=== PATIENT | male | born 1940 | race Caucasian/White ===

== ENCOUNTER 2017-06-21 11:54 | Outpatient (CLI) | payer OTHER ==
[~2017-06-21 11:54] MED LIST: ALTACE10 MG; ASA-EC81 MG; CARDURA1 MG; DIOVAN320 MG; FEOSOL1 TAB; FOLIC ACID1 MG; GLYCOTROL CAPS1 EACH; HYDROCHLOROTH12.5 MG; LABETALOL HCL200 MG; LIPITOR20 MG; METFORMIN HCL500 MG; NABUMETONE500 MG PO; PEPCID20 MG; PERCOCET 5/3251 TAB PO; PLAVIX75 MG; PROSCAR5 MG; PROTONIX40 MG
== END 2017-06-21 12:42 | disposition home or self-care (01) ==
LOC: LAB 11:54
DX: C61 Malignant neoplasm of prostate (principal)

== ENCOUNTER → 2017-06-24 06:45 | Outpatient (CLI) | payer OTHER | END | disposition home or self-care (01) | LOC: LAB 06:45 | DX: R31.9 Hematuria, unspecified (principal) ==

== ENCOUNTER 2017-08-27 09:07 | Emergency (ER) | payer OTHER ==
[~2017-08-27] VITALS: Ht 170.2 cm; Wt 80.3 kg
== END 2017-08-27 14:39 | disposition home or self-care (01) ==
LOC: ER 09:07
DX: R42 Dizziness and giddiness (principal)

== ENCOUNTER 2017-10-28 09:14 | Outpatient (CLI) | payer OTHER | END 2017-10-28 09:16 | disposition home or self-care (01) | LOC: LAB 09:14 | DX: I25.10 Atherosclerotic heart disease of native coronary artery without angina pectoris (principal); I71.4 Abdominal aortic aneurysm, without rupture; M10.9 Gout, unspecified; M10.072 Idiopathic gout, left ankle and foot; K76.0 Fatty (change of) liver, not elsewhere classified; N20.0 Calculus of kidney ==

== ENCOUNTER 2018-02-03 14:58 | Outpatient (CLI) | payer OTHER | END 2018-02-03 15:08 | disposition home or self-care (01) | LOC: LAB 14:58 | DX: C61 Malignant neoplasm of prostate (principal); R97.20 Elevated prostate specific antigen [PSA] ==

== ENCOUNTER → 2019-02-06 18:02 | Outpatient (CLI) | payer OTHER | END | disposition home or self-care (01) | LOC: LAB 18:02 | DX: N40.1 Benign prostatic hyperplasia with lower urinary tract symptoms (principal) ==

== ENCOUNTER 2019-07-11 11:31 | Outpatient (CLI) | payer OTHER | END 2019-07-11 12:45 | disposition home or self-care (01) | LOC: LAB 11:31 | DX: N40.1 Benign prostatic hyperplasia with lower urinary tract symptoms (principal); C67.8 Malignant neoplasm of overlapping sites of bladder ==

== ENCOUNTER 2019-11-07 11:15 | Outpatient (CLI) | payer OTHER ==
[2019-11-26] MEDS ORDERED: CIPRODEX OTIC7.5 ML OT (11:45)
== END 2019-11-07 15:00 | disposition home or self-care (01) ==
LOC: LAB 11:15
PROVIDERS: ATTEND Internal Medicine Geriatric Medicine
DX: E61.1 Iron deficiency (principal); R73.03 Prediabetes; I25.10 Atherosclerotic heart disease of native coronary artery without angina pectoris; E78.00 Pure hypercholesterolemia, unspecified; I10 Essential (primary) hypertension

== ENCOUNTER → 2019-11-26 | Outpatient (CLI) | payer OTHER ==
[~2019-11-26] MED LIST changes: +CIPRODEX OTIC7.5 ML OT
== END | disposition home or self-care (01) ==
LOC: OFIC 805 08:54
PROVIDERS: ATTEND Otolaryngology
DX: H60.8X1 Other otitis externa, right ear (principal); H61.21 Impacted cerumen, right ear; H90.41 Sensorineural hearing loss, unilateral, right ear, with unrestricted hearing on the contralateral side

== ENCOUNTER 2019-12-21 13:24 | Outpatient (CLI) | payer OTHER | END 2019-12-21 16:34 | disposition home or self-care (01) | LOC: OFIC 805 13:24 | PROVIDERS: ATTEND Otolaryngology | DX: H91.8X1 Other specified hearing loss, right ear (principal); H60.8X1 Other otitis externa, right ear ==

== ENCOUNTER 2020-02-19 10:55 | Outpatient (CLI) | payer OTHER | END 2020-02-19 11:01 | disposition home or self-care (01) | LOC: LAB 10:55 | PROVIDERS: ATTEND Urology | DX: R97.20 Elevated prostate specific antigen [PSA] (principal); C61 Malignant neoplasm of prostate; N30.00 Acute cystitis without hematuria ==

== ENCOUNTER → 2020-02-23 11:01 | Outpatient (CLI) | payer OTHER | END | disposition home or self-care (01) | LOC: LAB 11:01 | PROVIDERS: ATTEND Internal Medicine Geriatric Medicine | DX: R73.03 Prediabetes (principal); I25.10 Atherosclerotic heart disease of native coronary artery without angina pectoris; I10 Essential (primary) hypertension; E78.00 Pure hypercholesterolemia, unspecified ==

== ENCOUNTER 2020-03-11 09:37 | Outpatient (CLI) | payer OTHER | END 2020-03-11 09:48 | disposition home or self-care (01) | LOC: LAB 09:37 | PROVIDERS: ATTEND Urology | DX: R31.0 Gross hematuria (principal); D62 Acute posthemorrhagic anemia ==

== ENCOUNTER → 2020-05-10 | Outpatient (CLI) | payer OTHER | END | disposition home or self-care (01) | LOC: SONOGRAMA 09:09 → MAMO-SONO 09:15 | PROVIDERS: ATTEND Orthopaedic Surgery | DX: M25.512 Pain in left shoulder (principal) ==

== ENCOUNTER 2020-06-20 12:56 | Outpatient (CLI) | payer OTHER | END 2020-06-20 13:06 | disposition home or self-care (01) | LOC: LAB 12:56 | PROVIDERS: ATTEND Internal Medicine Geriatric Medicine | DX: R73.03 Prediabetes (principal); I10 Essential (primary) hypertension; D50.0 Iron deficiency anemia secondary to blood loss (chronic); I25.10 Atherosclerotic heart disease of native coronary artery without angina pectoris; E78.00 Pure hypercholesterolemia, unspecified; C61 Malignant neoplasm of prostate; R31.1 Benign essential microscopic hematuria; M10.9 Gout, unspecified ==

== ENCOUNTER 2020-08-12 08:08 | Outpatient (CLI) | payer OTHER | END 2020-08-12 08:55 | disposition home or self-care (01) | LOC: OFIC 805 08:08 | PROVIDERS: ATTEND Otolaryngology Otology & Neurotology | DX: H90.41 Sensorineural hearing loss, unilateral, right ear, with unrestricted hearing on the contralateral side (principal); R42 Dizziness and giddiness; H61.21 Impacted cerumen, right ear ==

== ENCOUNTER 2021-03-11 09:03 | Outpatient (CLI) | payer OTHER | END 2021-03-11 09:17 | disposition home or self-care (01) | LOC: LAB 09:03 | PROVIDERS: ATTEND Internal Medicine Geriatric Medicine | DX: R97.20 Elevated prostate specific antigen [PSA] (principal); I25.10 Atherosclerotic heart disease of native coronary artery without angina pectoris; E78.00 Pure hypercholesterolemia, unspecified; I10 Essential (primary) hypertension; R73.03 Prediabetes; N40.1 Benign prostatic hyperplasia with lower urinary tract symptoms; C61 Malignant neoplasm of prostate; C67.8 Malignant neoplasm of overlapping sites of bladder; L30.0 Nummular dermatitis ==

== ENCOUNTER 2021-05-18 11:00 | Outpatient (CLI) | payer OTHER | END 2021-05-18 11:01 | disposition home or self-care (01) | LOC: LAB 11:00 | DX: R93.2 Abnormal findings on diagnostic imaging of liver and biliary tract (principal) ==

== ENCOUNTER 2021-08-25 12:30 | Outpatient (CLI) | payer OTHER | END 2021-08-25 13:00 | disposition home or self-care (01) | LOC: PPH VACUNA 12:30 | PROVIDERS: ATTEND Emergency Medicine Pediatric Emergency Medicine | DX: Z23 Encounter for immunization (principal) ==

== ENCOUNTER → 2021-09-26 11:47 | Outpatient (CLI) | payer OTHER | END | disposition home or self-care (01) | LOC: LAB 11:47 | PROVIDERS: ATTEND Urology | DX: N40.1 Benign prostatic hyperplasia with lower urinary tract symptoms (principal); C61 Malignant neoplasm of prostate; C67.9 Malignant neoplasm of bladder, unspecified ==

== ENCOUNTER 2021-12-13 10:43 | Outpatient (CLI) | payer OTHER | END 2021-12-13 10:44 | disposition home or self-care (01) | LOC: LAB 10:43 | PROVIDERS: ATTEND Internal Medicine Geriatric Medicine | DX: I25.10 Atherosclerotic heart disease of native coronary artery without angina pectoris (principal); I10 Essential (primary) hypertension; E78.00 Pure hypercholesterolemia, unspecified; R73.03 Prediabetes ==

== ENCOUNTER 2022-04-23 11:51 | Outpatient (CLI) | payer OTHER | END 2022-04-23 11:52 | disposition home or self-care (01) | LOC: LAB 11:51 | PROVIDERS: ATTEND Internal Medicine Cardiovascular Disease | DX: I34.0 Nonrheumatic mitral (valve) insufficiency (principal); I50.32 Chronic diastolic (congestive) heart failure; E78.5 Hyperlipidemia, unspecified; I25.9 Chronic ischemic heart disease, unspecified ==

== ENCOUNTER 2022-04-25 11:58 | Outpatient (CLI) | payer OTHER | END 2022-04-25 12:00 | disposition home or self-care (01) | LOC: LAB 11:58 | PROVIDERS: ATTEND Urology | DX: I25.10 Atherosclerotic heart disease of native coronary artery without angina pectoris (principal); E78.00 Pure hypercholesterolemia, unspecified; I10 Essential (primary) hypertension; R73.03 Prediabetes; R97.20 Elevated prostate specific antigen [PSA]; R31.1 Benign essential microscopic hematuria ==

== ENCOUNTER 2022-06-16 10:47 | Outpatient (CLI) | payer OTHER | END 2022-06-16 10:58 | disposition home or self-care (01) | LOC: LAB 10:47 | DX: R93.2 Abnormal findings on diagnostic imaging of liver and biliary tract (principal); K86.2 Cyst of pancreas ==

== ENCOUNTER → 2022-06-16 | Emergency (ER) | payer OTHER ==
[~2022-06-16] VITALS: Ht 170.2 cm; Wt 81.6 kg
== END | disposition home or self-care (01) ==
LOC: ER 07:23
DX: S33.9XXA Sprain of unspecified parts of lumbar spine and pelvis, initial encounter (principal); W19.XXXA Unspecified fall, initial encounter; Y93.9 Activity, unspecified; Y92.9 Unspecified place or not applicable; Y99.9 Unspecified external cause status; S20.229A Contusion of unspecified back wall of thorax, initial encounter; Z91.013 Allergy to seafood

== ENCOUNTER → 2022-07-03 | Outpatient (CLI) | payer OTHER | END | disposition home or self-care (01) | LOC: RAD 15:28 | PROVIDERS: ATTEND Orthopaedic Surgery | DX: M54.2 Cervicalgia (principal) ==

== ENCOUNTER 2022-07-13 12:51 | Outpatient (CLI) | payer OTHER | END 2022-07-13 12:52 | disposition home or self-care (01) | LOC: NUCLEAR 12:51 | PROVIDERS: ATTEND Orthopaedic Surgery | DX: M81.0 Age-related osteoporosis without current pathological fracture (principal) ==

== ENCOUNTER 2022-08-17 09:37 | Outpatient (CLI) | payer OTHER | END 2022-08-17 09:43 | disposition home or self-care (01) | LOC: SONOGRAMA 09:37 | PROVIDERS: ATTEND Internal Medicine Cardiovascular Disease | DX: I71.40 Abdominal aortic aneurysm, without rupture, unspecified (principal) ==

== ENCOUNTER 2022-08-31 09:31 | Outpatient (CLI) | payer OTHER | END 2022-08-31 09:32 | disposition home or self-care (01) | LOC: LAB 09:31 | PROVIDERS: ATTEND Internal Medicine Geriatric Medicine | DX: M10.9 Gout, unspecified (principal); E78.00 Pure hypercholesterolemia, unspecified; I10 Essential (primary) hypertension; I25.10 Atherosclerotic heart disease of native coronary artery without angina pectoris ==

== ENCOUNTER 2022-09-21 09:19 | Outpatient (CLI) | payer OTHER | END 2022-09-21 09:28 | disposition home or self-care (01) | LOC: LAB 09:19 | PROVIDERS: ATTEND Internal Medicine Cardiovascular Disease | DX: I20.1 Angina pectoris with documented spasm (principal) ==

== ENCOUNTER 2022-12-06 10:24 | Outpatient (CLI) | payer OTHER | END 2022-12-06 10:40 | disposition home or self-care (01) | LOC: RAD 10:24 | PROVIDERS: ATTEND Ophthalmology | DX: Z01.818 Encounter for other preprocedural examination (principal) ==

== ENCOUNTER 2022-12-21 10:05 | Outpatient (CLI) | payer OTHER | END 2022-12-21 10:13 | disposition home or self-care (01) | LOC: LAB 10:05 | PROVIDERS: ATTEND Internal Medicine Geriatric Medicine | DX: E78.00 Pure hypercholesterolemia, unspecified (principal); I11.9 Hypertensive heart disease without heart failure; R73.03 Prediabetes; I25.10 Atherosclerotic heart disease of native coronary artery without angina pectoris ==

== ENCOUNTER 2023-01-09 03:01 | Emergency (ER) | payer OTHER ==
[~2023-01-09] VITALS: Ht 165.1 cm; Wt 79.8 kg
== END 2023-01-09 13:26 | disposition home or self-care (01) ==
LOC: ER 03:01
PROVIDERS: General Practice
DX: K62.5 Hemorrhage of anus and rectum (principal); K57.91 Diverticulosis of intestine, part unspecified, without perforation or abscess with bleeding

== ENCOUNTER → 2023-01-19 10:32 | Outpatient (CLI) | payer OTHER | END | disposition home or self-care (01) | LOC: LAB 10:32 | DX: D50.0 Iron deficiency anemia secondary to blood loss (chronic) (principal); K62.5 Hemorrhage of anus and rectum; D62 Acute posthemorrhagic anemia ==

== ENCOUNTER → 2023-02-23 | Outpatient (CLI) | payer OTHER | END | disposition home or self-care (01) | LOC: RAD 10:42 | DX: R05.8 Other specified cough (principal) ==

== ENCOUNTER 2023-04-29 08:46 | Outpatient (CLI) | payer OTHER | END 2023-04-29 08:59 | disposition home or self-care (01) | LOC: SONOGRAMA 08:46 | PROVIDERS: ATTEND Urology | DX: N40.1 Benign prostatic hyperplasia with lower urinary tract symptoms (principal); C61 Malignant neoplasm of prostate; C67.9 Malignant neoplasm of bladder, unspecified; G56.03 Carpal tunnel syndrome, bilateral upper limbs ==

== ENCOUNTER 2023-06-21 14:52 | Outpatient (CLI) | payer OTHER | END 2023-06-21 14:56 | disposition home or self-care (01) | LOC: RAD 14:52 | PROVIDERS: ATTEND Orthopaedic Surgery | DX: M25.551 Pain in right hip (principal); M25.552 Pain in left hip; M54.50 Low back pain, unspecified ==

== ENCOUNTER 2023-08-24 12:00 | Outpatient (CLI) | payer OTHER ==
[2023-08-24 13:04] LABS: HEMATOCRIT 38.1 % (39.0-48.0); HEMOGLOBIN 13.2 g/dL (13-16.00); MEAN CELL VOLUME 96.3 fL (80.0-100.00); MEAN CORPUSCULAR HEMOGLOBIN 33.4 pg (27.00-32.0); MEAN CORPUSCULAR HGB CONC 34.7 g/dl (32.0-36.0); PLATELET COUNT 153 K/uL (150-450); RED BLOOD COUNT 3.96 M/uL (4.00-6.00); RED CELL DISTRIBUTION WIDTH 14.2 % (11.5-14.5)
[2023-08-24 13:06] LABS: PH,URINE 5.5 (5.0-8.0); URINE APPEARANCE Clear; URINE BILIRRUBIN Negative (NEGATIVE); URINE BLOOD Trace; URINE COLOR Yellow; URINE GLUCOSE Negative (NEGATIVE); URINE LEUKOCYTE Negative; URINE NITRATE Negative; URINE PROTEIN Negative (NEGATIVE); URINE UROBILINOGEN 0.2 E.U./dl
[2023-08-24 13:10] LABS: URINE BACTERIA 6.2 uL (0.0-1933); URINE EPITHELIAL CELLS 2.7 uL (0.0-38.8); URINE RBC 8.7 uL (0.0-20.8); URINE WBC 4.7 uL (0.0-23.2)
[2023-08-24 13:48] LABS: ALBUMIN 3.7 gm/dL (3.4-5.0); BILIRUBIN TOTAL 0.83 mg/dL (0.3-1.2); CALCIUM 8.7 mg/dL (8.5-10.1); CHOL HDL RATIO 2.1 (0-5.0); CREATININE SERUM 0.89 mg/dL (0.70-1.30); GFR 81.83; GLOBULINA 3.2 G/DL (2.4-3.5); POTASSIUM 3.48 mEq/L (3.5-5.1); TOTAL PROTEIN 6.9 gm/dL (6.4-8.2); URIC ACID 5.8 mg/dL (3.5-8.5)
== END 2023-08-24 12:15 | disposition home or self-care (01) ==
LOC: LAB 12:00
DX: I10 Essential (primary) hypertension (principal); I25.10 Atherosclerotic heart disease of native coronary artery without angina pectoris; D50.0 Iron deficiency anemia secondary to blood loss (chronic); N40.1 Benign prostatic hyperplasia with lower urinary tract symptoms; E78.00 Pure hypercholesterolemia, unspecified; R73.03 Prediabetes; M10.9 Gout, unspecified

== ENCOUNTER 2024-08-13 19:31 | Emergency (ER) | payer OTHER ==
[~2024-08-13] VITALS: Ht 167.6 cm; Wt 79.4 kg
[2024-08-13] MEDS ORDERED: FAMOTIDINE/PF 20 MG in 0.9 % SODIUM CHLORIDE 8 ML IV PUSH STA (20:47)
[2024-08-13] MEDS ORDERED: 0.9 % SODIUM CHLORIDE 1,000 ML IV SCH (21:00)
[2024-08-13] MEDS ORDERED: ONDANSETRON HCL 2 MG/ML VIAL IV ONE (21:00)
[2024-08-13] MEDS ORDERED: ONDANSETRON HCL 2 MG/ML VIAL ONE (21:03)
[2024-08-13] MEDS ORDERED: FAMOTIDINE/PF 20 MG/2 ML VIAL ONE (21:03)
[2024-08-13 21:56] LABS: HEMATOCRIT 33.5 % (39.0-48.0); HEMOGLOBIN 11.4 g/dL (13-16.00); MEAN CELL VOLUME 91.1 fL (80.0-100.00); MEAN CORPUSCULAR HEMOGLOBIN 30.8 pg (27.00-32.0); MEAN CORPUSCULAR HGB CONC 33.8 g/dl (32.0-36.0); PLATELET COUNT 171 K/uL (150-450); RED BLOOD COUNT 3.68 M/uL (4.00-6.00); RED CELL DISTRIBUTION WIDTH 15.8 % (11.5-14.5)
[2024-08-13 22:10] LABS: INR 1.05; PARTIAL THROMBOPLASTIN TIME 25.8 SECONDS (22.0-34.0); PROTHROMBIN TIME 11.4 SECONDS (9.0-11.5)
[2024-08-13 22:14] LABS: ALBUMIN 3.6 gm/dL (3.4-5.0); BILIRUBIN TOTAL 0.95 mg/dL (0.3-1.2); CREATININE SERUM 0.94 mg/dL (0.70-1.30); GFR 76.64; GLOBULINA 3.2 G/DL (2.4-3.5); POTASSIUM 3.95 mEq/L (3.5-5.1); TOTAL PROTEIN 6.8 gm/dL (6.4-8.2)
[2024-08-13] MEDS ORDERED: ANTIVERT25 M2 PO (23:37)
[2024-08-13] MEDS ORDERED: ANALPRAM HC 2.530 GM RECTAL (23:37)
[2024-08-14] MEDS ORDERED: METOCLOPRAMIDE HCL 5 MG/ML VIAL ONE (00:42)
[2024-08-14] MEDS ORDERED: MECLIZINE HCL 25 MG TABLET PO ONE ×2 (00:42→00:45)
[2024-08-14] MEDS ORDERED: METOCLOPRAMIDE HCL 5 MG/ML VIAL IM ONE (00:45)
[2024-08-14] MEDS ORDERED: hydrOXYzine PAMOATE 50 MG CAPSULE PO STA (03:27)
[2024-08-14] MEDS ORDERED: hydrOXYzine PAMOATE 50 MG CAPSULE PO ONE (03:31)
== END 2024-08-14 06:07 | disposition home or self-care (01) ==
LOC: ER 19:31
PROVIDERS: General Practice
DX: K64.8 Other hemorrhoids (principal); K57.30 Diverticulosis of large intestine without perforation or abscess without bleeding; N40.0 Benign prostatic hyperplasia without lower urinary tract symptoms; N28.1 Cyst of kidney, acquired; N20.0 Calculus of kidney; K40.90 Unilateral inguinal hernia, without obstruction or gangrene, not specified as recurrent; I10 Essential (primary) hypertension; E11.9 Type 2 diabetes mellitus without complications; Z79.84 Long term (current) use of oral hypoglycemic drugs; Z91.013 Allergy to seafood; R53.81 Other malaise

== ENCOUNTER 2024-11-19 11:11 | Outpatient (CLI) | payer OTHER ==
[~2024-11-19 11:11] MED LIST changes: +ANALPRAM HC 2.530 GM RECTAL; +ANTIVERT25 M2 PO
== END 2024-11-19 11:19 | disposition home or self-care (01) ==
LOC: RAD 11:11
PROVIDERS: ATTEND Surgery
DX: K64.2 Third degree hemorrhoids (principal); R19.5 Other fecal abnormalities; K64.3 Fourth degree hemorrhoids

== ENCOUNTER 2024-11-23 09:49 | Outpatient (CLI) | payer OTHER ==
[2024-11-23 11:05] LABS: URINE APPEARANCE Clear; URINE BILIRRUBIN Negative (NEGATIVE); URINE BLOOD Negative; URINE COLOR Yellow; URINE GLUCOSE Negative (NEGATIVE); URINE KETONE Trace (NEGATIVE); URINE LEUKOCYTE Trace; URINE NITRATE Negative; URINE PROTEIN Negative (NEGATIVE); URINE UROBILINOGEN 0.2 E.U./dl
[2024-11-23 11:10] LABS: URINE BACTERIA 10.7 uL (0.0-1933); URINE EPITHELIAL CELLS 1.6 uL (0.0-38.8); URINE RBC 12.7 uL (0.0-20.8); URINE WBC 10.9 uL (0.0-23.2)
[2024-11-23 11:12] LABS: URINE CAST 0.14 uL (0.0-1.40)
[2024-11-23 11:21] LABS: BASO % 0.7 % (0.1-1.2); EOS # 0.24 (0.04-0.54); EOS % 4.2 % (0.7-7.0); LYMPH # 1.45 (1.18-3.74); LYMPH % 25.5 % (19.3-53.1); MEAN PLATELET VOLUME 9.60 fl (9.4-12.4); MONO # 0.63 (0.24-0.82); MONO % 11.1 % (4.7-12.5); NEUT # 3.31 (1.56-6.13); NEUT % 58.3 % (34.0-71.1); RED CELL DISTRIBUTION WIDTH 14.1 % (11.6-14.4)
[2024-11-23 12:22] LABS: ALT/SGPT 25.0 U/L (12-78); AST/SGOT 20.0 U/L (15-37); BILIRUBIN TOTAL 0.88 mg/dL (0.3-1.2); BUN CREA RATIO 21.0 (7.0-25.0); CREATININE SERUM 0.92 mg/dL (0.70-1.30); GFR 78.57; GLOBULINA 3.0 G/DL (2.4-3.5); GLUCOSE FASTING 73.0 mg/dL (65-100); OSMOLALITY SERUM 288.0 MOSM/KG (275-295)
[2024-11-23 12:51] LABS: INR 0.98
== END 2024-11-23 10:01 | disposition home or self-care (01) ==
LOC: LAB 09:49
PROVIDERS: ATTEND Surgery
DX: K64.2 Third degree hemorrhoids (principal); R19.5 Other fecal abnormalities; K64.3 Fourth degree hemorrhoids

== ENCOUNTER 2024-12-03 07:40 | Day surgery (SDC) | payer OTHER ==
[2024-11-25 10:12] VITALS: BP 160/89
[~2024-12-03] VITALS: Ht 170.2 cm; Wt 79.4 kg
[2024-12-03] MEDS ORDERED: PERCOCET 5-3251 EACH PO (12:05)
[2024-12-03] MEDS ORDERED: RECTICARE30 GM TOP (12:06)
[2024-12-03] MEDS ORDERED: HEMOSTATIC MATRIX 1 KIT KIT TOP ONE (12:45)
[2024-12-03] MEDS ORDERED: BUPIVACAINE HCL/PF 0.25% 30ML VIAL InF ONE (12:45)
[2024-12-03] MEDS ORDERED: POVIDONE-IODINE 118 ML BOTT TOP ONE (12:45)
[2024-12-03] MEDS ORDERED: LIDOCAINE HCL 1%/EPINEPHRINE 20ML VIAL IJ ONE (12:45)
[2024-12-03] MEDS ORDERED: DIBUCAINE 15 GM OINT..GM. TUBE RECTAL ONE (12:45)
[2024-12-03] MEDS ORDERED: CEFTRIAXONE SODIUM 2,000 MG VIAL IV ONE (12:45)
[2024-12-03] MEDS ORDERED: TAMSULOSIN HCL 0.4 MG CAP PO ONE ×2 (15:11→15:20)
[2024-12-03] MEDS ORDERED: MORPHINE SULFATE 4 MG/ML VIAL IV ONE (15:20)
[2024-12-04] MEDS ORDERED: DOXAZOSIN MESYLA2 MG PO (06:49)
[2024-12-04] MEDS ORDERED: ATORVASTATIN CA20 MG PO (06:49)
[2024-12-04] MEDS ORDERED: VALSARTAN-HCTZ1 EAC4 PO (06:49)
[2024-12-04] MEDS ORDERED: PEPCID AC20 MG PO (06:50)
[2024-12-04] MEDS ORDERED: FUSION PLUS CA1 EACH PO (06:50)
[2024-12-04] MEDS ORDERED: TAMS0.4C PO (06:50)
[2024-12-04] MEDS ORDERED: ALLOPURINOL100 MG PO (06:50)
[2024-12-04] MEDS ORDERED: LABETALOL HCL200 MG PO (06:52)
[2024-12-04] MEDS ORDERED: METFORMIN HCL500 M3 PO (06:53)
[2024-12-04] MEDS ORDERED: RAMIPRIL10 MG PO (06:53)
[2024-12-04] MEDS ORDERED: SYNTHROID75 MCG PO (06:54)
== END 2024-12-03 18:25 | disposition home or self-care (01) ==
LOC: CIR.AMB 07:40
PROVIDERS: ATTEND Surgery
DX: K64.2 Third degree hemorrhoids (principal); K64.4 Residual hemorrhoidal skin tags; Z91.013 Allergy to seafood

== ENCOUNTER → 2024-12-04 | Emergency (ER) | payer OTHER ==
[~2024-12-04] VITALS: Ht 170.2 cm; Wt 79.4 kg
[~2024-12-04] MED LIST changes: +ALLOPURINOL100 MG PO; +ATORVASTATIN CA20 MG PO; +DOXAZOSIN MESYLA2 MG PO; +FUSION PLUS CA1 EACH PO; +LABETALOL HCL200 MG PO; +METFORMIN HCL500 M3 PO; +PEPCID AC20 MG PO; +PERCOCET 5-3251 EACH PO; +RAMIPRIL10 MG PO; +RECTICARE30 GM TOP; +SYNTHROID75 MCG PO; +TAMS0.4C PO; +VALSARTAN-HCTZ1 EAC4 PO
[2024-12-04 06:50] VITALS: BP 117/69; O2SAT 100
== END | disposition left against medical advice (07) ==
LOC: ER 05:57
DX: Z53.21 Procedure and treatment not carried out due to patient leaving prior to being seen by health care provider (principal)

== ENCOUNTER 2024-12-21 18:10 | Inpatient (IN) | payer OTHER ==
[~2024-12-21] VITALS: Ht 167.6 cm; Wt 74.8 kg
--- NOTE | 2024-12-21 18:38 | NUR ---
SE RECIBE PTE ALERTA Y ORIENTADO EN AMBULANCIA EL CUAL REFIERE VENIR POR [place] RECT[place] DES[place] LA [place] DE [place]. PTE REFIERE LUCÍA SIDO OPERADO DE HEMMORROIDES POR DR. SCOTT. SE MIDEN S/V A PTE Y SE UBICA.
--- NOTE | 2024-12-21 18:59 | NUR ---
MR. GOINS EDUCA A PTE SOBRE [place] MED[facility], SE NICOLE MUESTRAS DE LABORATORIO UTILIZANDO MEDIDAS ASEPTICAS. SE COLOCA H/L DENNIS DE EDEMA.
[2024-12-21 19:03] LABS: BASO % 0.5 % (0.1-1.2); EOS # 0.17 (0.04-0.54); EOS % 1.7 % (0.7-7.0); LYMPH # 1.47 (1.18-3.74); LYMPH % 14.7 % (19.3-53.1); MEAN PLATELET VOLUME 9.10 fl (9.4-12.4); MONO # 0.70 (0.24-0.82); MONO % 7.0 % (4.7-12.5); NEUT # 7.60 (1.56-6.13); NEUT % 75.8 % (34.0-71.1); RED CELL DISTRIBUTION WIDTH 12.9 % (11.6-14.4)
[2024-12-21 19:19] LABS: INR 1.09
[2024-12-21 19:36] LABS: ALT/SGPT 19.0 U/L (12-78); AST/SGOT 17.0 U/L (15-37); BILIRUBIN TOTAL 0.85 mg/dL (0.3-1.2); BUN CREA RATIO 18.0 (7.0-25.0); CREATININE SERUM 0.99 mg/dL (0.70-1.30); GFR 72.19; GLOBULINA 3.4 G/DL (2.4-3.5); GLUCOSE FASTING 115.0 mg/dL (65-100); OSMOLALITY SERUM 286.0 MOSM/KG (275-295)
[2024-12-21] MEDS ORDERED: PANTOPRAZOLE SODIUM 40 MG/VIAL VIAL IV SCH (21:07)
[2024-12-21] MEDS ORDERED: DOCUSATE SODIUM 100MG CAP PO SCH (21:08)
[2024-12-21] MEDS ORDERED: ACETAMINOPHEN 325 MG TABLET PO PRN (21:15)
[2024-12-21] MEDS ORDERED: RINGERS SOLUTION,LACTATED 1,000 ML IV SCH (21:15)
[2024-12-21] MEDS ORDERED: DEXTROSE 50 % IN WATER 0.5 G/ML VIAL IV PRN (21:30)
[2024-12-21] MEDS ORDERED: INSULIN LISPRO 1,000 UNIT/10 ML UNITS SUBCUTANEO PRN (21:30)
[2024-12-21] MEDS ORDERED: hydrALAZINE HCL 20 MG VIAL IV PRN (21:45)
[2024-12-21 21:49] LABS: BASO % 0.4 % (0.1-1.2); EOS # 0.06 (0.04-0.54); EOS % 0.6 % (0.7-7.0); LYMPH # 1.62 (1.18-3.74); LYMPH % 16.8 % (19.3-53.1); MEAN PLATELET VOLUME 9.10 fl (9.4-12.4); MONO # 0.63 (0.24-0.82); MONO % 6.5 % (4.7-12.5); NEUT # 7.25 (1.56-6.13); NEUT % 75.4 % (34.0-71.1); RED CELL DISTRIBUTION WIDTH 13.0 % (11.6-14.4)
[2024-12-21 22:07] LABS: ABG PH 7.472 (7.35-7.45); ABG PO2 99.2 mmHg (80-100); BICARBONATE 22.7 mmol/l (23-25)
[2024-12-21 22:08] LABS: o2 21 %
[2024-12-21] MEDS ORDERED: ONDANSETRON HCL 4 MG in 0.9 % SODIUM CHLORIDE 50 ML IV PRN (22:45)
[2024-12-21] MEDS ORDERED: AMINOCAPROIC ACID 250 MG/ML VIAL IV ONE (22:45)
[2024-12-21] MEDS ORDERED: IRON FUM,PS/FOLIC/BCOMP,C NO.9 1 CAP CAPSULE PO SCH (23:00)
[2024-12-21 23:19] VITALS: BP 113/56; O2SAT 98
[2024-12-22] VITALS (8 sets, daily range): BP systolic 90–95; BP diastolic 53–59; O2SAT 87–97
[2024-12-22] MEDS ORDERED: TAMSULOSIN HCL 0.4 MG CAP PO SCH (09:00)
[2024-12-22 09:08] LABS: BASO % 0.1 % (0.1-1.2); EOS # 0.00 (0.04-0.54); EOS % 0.0 % (0.7-7.0); LYMPH # 1.60 (1.18-3.74); LYMPH % 22.1 % (19.3-53.1); MEAN PLATELET VOLUME 9.50 fl (9.4-12.4); MONO # 0.46 (0.24-0.82); MONO % 6.4 % (4.7-12.5); NEUT # 5.13 (1.56-6.13); NEUT % 71.0 % (34.0-71.1); RED CELL DISTRIBUTION WIDTH 13.2 % (11.6-14.4)
[2024-12-22 09:10] LABS: URINE APPEARANCE Clear; URINE BILIRRUBIN Negative (NEGATIVE); URINE BLOOD Negative; URINE COLOR Yellow; URINE GLUCOSE Negative (NEGATIVE); URINE KETONE 15 (NEGATIVE); URINE LEUKOCYTE Negative; URINE NITRATE Negative; URINE PROTEIN Trace (NEGATIVE); URINE UROBILINOGEN 1.0 E.U./dl
[2024-12-22 09:14] LABS: URINE CAST 3.51 uL (0.0-1.40); URINE EPITHELIAL CELLS 4.6 uL (0.0-38.8); URINE RBC 9.3 uL (0.0-20.8); URINE WBC 1.9 uL (0.0-23.2)
[2024-12-22 09:35] LABS: URINE BACTERIA 3.5 uL (0.0-1933)
[2024-12-22 09:58] LABS: BUN CREA RATIO 28.0 (7.0-25.0); CREATININE SERUM 0.98 mg/dL (0.70-1.30); GFR 73.04; GLUCOSE FASTING 116.0 mg/dL (65-100); OSMOLALITY SERUM 291.0 MOSM/KG (275-295)
[2024-12-22 14:31] LABS: ob POSITIVE (NEGATIVE)
[2024-12-23] VITALS (7 sets, daily range): BP systolic 109–129; BP diastolic 57–64; O2SAT 90–99
[2024-12-23 01:54] LABS: BASO % 0.6 % (0.1-1.2); EOS # 0.08 (0.04-0.54); EOS % 1.1 % (0.7-7.0); LYMPH # 2.02 (1.18-3.74); LYMPH % 28.7 % (19.3-53.1); MEAN PLATELET VOLUME 9.70 fl (9.4-12.4); MONO # 0.91 (0.24-0.82); NEUT # 3.98 (1.56-6.13); NEUT % 56.4 % (34.0-71.1); RED CELL DISTRIBUTION WIDTH 14.2 % (11.6-14.4)
[2024-12-23 02:29] LABS: MONO % 12.9 % (4.7-12.5)
[2024-12-23 08:54] LABS: BASO % 0.7 % (0.1-1.2); EOS # 0.17 (0.04-0.54); EOS % 2.5 % (0.7-7.0); LYMPH # 1.74 (1.18-3.74); LYMPH % 25.8 % (19.3-53.1); MEAN PLATELET VOLUME 10.00 fl (9.4-12.4); MONO # 0.83 (0.24-0.82); NEUT # 3.90 (1.56-6.13); NEUT % 58.0 % (34.0-71.1); RED CELL DISTRIBUTION WIDTH 14.4 % (11.6-14.4)
[2024-12-23 09:04] LABS: MONO % 12.3 % (4.7-12.5)
[2024-12-23 09:29] LABS: ALT/SGPT 15.0 U/L (12-78); AST/SGOT 13.0 U/L (15-37); BILIRUBIN TOTAL 1.16 mg/dL (0.3-1.2); BUN CREA RATIO 30.0 (7.0-25.0); CREATININE SERUM 1.04 mg/dL (0.70-1.30); GFR 68.2; GLOBULINA 2.3 G/DL (2.4-3.5); GLUCOSE FASTING 81.0 mg/dL (65-100); OSMOLALITY SERUM 291.0 MOSM/KG (275-295)
[2024-12-24] VITALS: O2SAT 97
[2024-12-24 02:58] VITALS: BP 116/58; O2SAT 96
[2024-12-24 05:56] VITALS: O2SAT 96
[2024-12-24] MEDS ORDERED: INTEGRA PLUS C1 EACH PO (08:51)
[2024-12-24] MEDS ORDERED: TRAM1TAB98 PO (08:51)
[2024-12-24 09:26] VITALS: O2SAT 96
[2024-12-24 09:39] VITALS: BP 129/68; O2SAT 96
== END 2024-12-24 09:48 | disposition home or self-care (01) | DRG 378 ==
LOC: ER 18:10 → MEDJ 21:41
PROVIDERS: General Practice; ADMIT Surgery; ATTEND Surgery
PROC: BW21ZZZ Computerized Tomography (CT Scan) of Abdomen and Pelvis (ICD-10-PCS; 2024-12-21)
PROC: 30233N1 Transfusion of Nonautologous Red Blood Cells into Peripheral Vein, Percutaneous Approach (ICD-10-PCS; principal; 2024-12-22)
PROC: 4A12X4Z Monitoring of Cardiac Electrical Activity, External Approach (ICD-10-PCS; 2024-12-22)
DX: K62.5 Hemorrhage of anus and rectum (principal); E87.29 Other acidosis; I10 Essential (primary) hypertension; E11.9 Type 2 diabetes mellitus without complications; E03.9 Hypothyroidism, unspecified; Z98.890 Other specified postprocedural states; Z79.84 Long term (current) use of oral hypoglycemic drugs